=== PATIENT | female | born 1980 | race Caucasian/White ===

== ENCOUNTER 2016-11-08 13:09 | Emergency (ER) | payer MEDICAID, OTHER ==
[2016-11-08 14:57] VITALS: BP 145/91
--- NOTE | 2016-11-08 15:20 | UC ---
Skin Complaint HPI - HPI Summary HPI Summary: FACIAL RASH FOR THE PAST 2 WEEKS, RED, BUMPY WITH A ALVAREZ CRUST. SAW PCP AND PUT ON AMOXICILLIN AND GIVEN BACTROBAN. RASH IMPROVED BUT RETURNED AFTER ABX WERE DONE. NOW ALSO HAS BUMPY RASH ON BACKS OF BOTH HANDS. PT DENIES FEVER, SWEATS, WEIGHT LOSS, MYALGIAS, JOINT PAIN. NO RESPIRATORY DIFFICULTY. - History of Current Complaint Chief Complaint: UCSkin Time Seen by Provider: 11/08/16 15:04 Stated Complaint: RASH Hx Obtained From: Patient Hx Last Menstrual Period: MIDDLE OCTOBER Onset/Duration: Gradual Onset, Lasting Weeks, Still Present Timing: Constant Onset Severity: Moderate Current Severity: Moderate Pain Intensity: 8 Pain Scale Used: 0-10 Numeric Location: Face, Hand (Right), Hand (Left) Character: Pruritus, Redness, Raised Aggravating: Touch Alleviating: Other - IMPROVED WITH AMOXICILLIN Associated Signs & Symptoms: Positive: Rash, Tenderness. Negative: Nausea, Vomiting, Numbness, Diaphoresis, Weakness, Shivering, Difficulty Breathing, Fever, Chills, Cough, Wheezing, Chest Pain, Hoarseness, Abdominal Pain, Lightheadedness, Syncope, Drainage, Bruising, Joint Swelling - Allergy/Home Medications Allergies/Adverse Reactions: Allergies Allergy/AdvReac Type Severity Reaction Status Date / Time No Known Allergies Allergy Verified 11/08/16 14:57 Home Medications: Home Medications Otc Allergy Med* 11/08/16 [History] Review of Systems Constitutional: Negative Skin: Rash Respiratory: Negative Cardiovascular: Negative Gastrointestinal: Negative All Other Systems Reviewed And Are Negative: Yes PMH/Surg Hx/FS Hx/Imm Hx Previously Healthy: Yes Endocrine History Of: Denies: Diabetes, Thyroid Disease Cardiovascular History Of: Denies: Cardiac Disorders, Hypertension Respiratory History Of: Denies: COPD, Asthma GI/ History Of: Denies: Ulcer - Surgical History Surgical History: Yes Surgery Procedure, Year, and Place: BILAT EYE LASIK SURGERY - Family History Known Family History: Positive: Diabetes Family History: no cardiovascular issues in family lineage - Social History Alcohol Use: None Substance Use Type: None Smoking Status (MU): Never Smoked Tobacco Physical Exam Triage Information Reviewed: Yes Appearance: Well-Appearing, No Pain Distress, Well-Nourished Vital Signs: Initial Vital Signs Temp 98.3 F 11/08/16 14:53 Pulse 88 11/08/16 14:53 Resp 16 11/08/16 14:53 BP 145/91 11/08/16 14:53 Pulse Ox 100 11/08/16 14:53 Vital Signs Reviewed: Yes Eyes: Positive: Conjunctiva Clear ENT: Positive: Hearing grossly normal, Pharynx normal Neck: Positive: Supple, Nontender, No Lymphadenopathy Respiratory: Positive: No respiratory distress, No accessory muscle use Cardiovascular: Positive: Pulses Normal Abdomen Description: Positive: Soft Musculoskeletal: Positive: No Edema Neurological: Positive: Alert Psychological: Positive: Normal Response To Family, Age Appropriate Behavior Skin: Positive: Other - ERYTHEMATOUS, BUMPY RASH WITH ALVAREZ CRUST OVER FOREHEAD , NOSE, NASOLABIAL FOLD AND CHIN. ERYTHEMATOUS PAPULAR RASH ON BACKS OF BOTH HANDS. Course/Dx - Diagnoses Provider Diagnoses: 1. IMPETIGO. 2. DERMATITIS, NOS - HANDS Discharge - Discharge Plan Condition: Stable Disposition: HOME Prescriptions: Cephalexin CAP* [Keflex 500 CAP*] 500 mg PO QID #40 cap Mupirocin 2% OINT* [Bactroban 2 % Oint*] 1 applic TOPICAL BID #1 tube Triamcinolone 0.1% CREAM(NF) [Kenalog Cream 0.1%(NF)] 1 applic TOPICAL TID PRN # 1 tube PRN Reason: Itching Patient Education Materials: Impetigo (ED), Dermatitis (ED) Referrals: Mono Carranza MD [Primary Care Provider] - If Needed Additional Instructions: USE TOPICAL STEROID ON RASH ON HANDS. USE BACTROBAN ON RASH ON FACE. WASH WITH HIBICLENS FOR 3 DAYS. BE CAREFUL TO AVOID MUCUS MEMBRANES. Apply HIBICLENS directly on your skin or on a wet washcloth and wash gently. If showering: Move away from the shower stream when applying HIBICLENS to avoid rinsing off too soon. Rinse thoroughly with warm water. Do not use regular soap after applying and rinsing HIBICLENS. Dry your skin with a towel. Put on a freshly laundered gown or clothes after bathing. CALL DERMATOLOGY FIRST THING TOMORROW MORNING TO SCHEDULE AN APPT FOR FOLLOW-UP. DERMATOLOGY IN [place] Dr. Zaira Moon. [phone] IN [place] [address]. Farrah Berry DERMATOLOGY IN [place] [address] GET ROSE [phone]
== END 2016-11-08 15:42 | disposition home or self-care (01) ==
LOC: UCEAST 13:09
DX: L01.00 Impetigo, unspecified (principal); L30.9 Dermatitis, unspecified
CPT/HCPCS: 99212; G0463